=== PATIENT | female | born 1955 ===

== ENCOUNTER 2017-04-14 07:34 | Emergency (ER) | payer MEDICAID ==
[2017-04-14 07:43] VITALS: TEMP 98.2
[2017-04-14] MEDS ORDERED: Iohexol 240 (50 ml) ONE (09:15)
[2017-04-14 09:24] LABS: SQUAMOUS EPITHIAL < 1 /hpf (0-5); URINE BILIRUBIN NEGATIVE (NEGATIVE); URINE BLOOD NEGATIVE (NEGATIVE); URINE CLARITY Clear (Clear); URINE COLOR Yellow (YELLOW); URINE GLUCOSE (UA) 3+ mg/dL (Normal); URINE LEUKOCYTE ESTERASE NEG Leu/uL (Negative); URINE NITRATE NEGATIVE (NEGATIVE); URINE PROTEIN NEGATIVE (NEGATIVE); URINE UROBILINOGEN NORMAL mg/dL (0.2-1.0)
[2017-04-14 09:33] LABS: ALB/GLOB RATIO 1.1 (1.0-2.1); ALT/SGPT 22 U/L (9-52); AST/SGOT 22 U/L (14-36); BLOOD UREA NITROGEN 6 mg/dL (7-17); CALCIUM 9.4 mg/dl (8.6-10.4); GFR AFRICAN-AMERICAN > 60; GFR NON-AFRICAN AMERICAN > 60; LIPASE 45 U/L (23-300)
[2017-04-14 10:04] LABS: BASO % 0.4 % (0.0-2.0); EOS % 0.3 % (0.0-4.0); HEMOGLOBIN 14.2 g/dL (11.0-16.0); LYMPH # 1.2 K/uL (1.0-4.3); LYMPH % 15.8 % (20.0-40.0); MEAN CELL VOLUME 85.8 fL (81.0-99.0); MEAN CORPUSCULAR HEMOGLOBIN 30.6 pg (27.0-31.0); MEAN CORPUSCULAR HGB CONC 35.6 g/dL (33.0-37.0); MEAN PLATELET VOLUME 7.3 fL (7.2-11.7); MONO # 0.5 K/uL (0.0-0.8); MONO % 6.3 % (0.0-10.0); NEUT # 5.8 K/uL (1.8-7.0); NEUT % 77.2 % (50.0-75.0); NRBC % 0.1 % (0.0-2.0); RBC 4.65 Mil/uL (3.80-5.20); RED CELL DISTRIBUTION WIDTH 12.8 % (11.5-14.5)
[2017-04-14 10:06] LABS: WHITE BLOOD COUNT 7.5 K/uL (4.8-10.8)
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
--- NOTE | 2017-04-14 12:52 | CT ---
CT abdomen and pelvis History: Abdominal pain Comparison: None available. Technique: Multiple contiguous axial images were performed through the abdomen and pelvis without the use of intravenous contrast. Subsequently, sagittal and coronal reformatted images were obtained. This CT exam was performed using one or more of the following dose reduction techniques: Automated exposure control, adjustment of the mA and/or kV according to patient size, and/or use of iterative reconstruction technique. Findings: Focal ill-defined area of consolidative opacities within the posterior aspect of the right lower lobe measuring up to 2.7 centimeters which may represent an underlying acute infectious and or inflammatory process. Additional etiologies not entirely excluded. Posttreatment interval followup may be helpful if clinically indicated. Focal areas of more nodular consolidation seen within the anterior aspect of the right middle lobe measuring up 1.7 centimeters with additional focal consolidation seen within lingula. 2 millimeter subpleural calcification along the anterior aspect of the right middle lobe. No pleural or pericardial effusion. Prominent liver. Fatty infiltration of the liver. Status post prior cholecystectomy. Spleen is preserved. Rounded calcified focus adjacent to the pancreatic tail near the splenic hilum which may represent calcified splenule versus calcific vessel versus calcified granuloma versus additional etiology. This is not significantly changed since prior study. Adrenal glands are preserved. Mild fatty atrophy of the pancreas. Upper abdominal bowel is grossly preserved. Right kidney: No calculi or hydronephrosis. Left Kidney: No calculi or hydronephrosis. Underdistended urinary bladder. Diffuse thickening of the colon suggestive for underlying colitis. Diverticulosis most prominent at the level of the sigmoid colon. Most prominent focal thickening of the colon at the level of the ascending and sigmoid colons. Appendix not well identified on this study. Clinical correlation. Calcification and plaque within the aorta. Few shotty para-aortic and mesenteric nodes. Degenerative changes in the visualized osseous structures. Loss of height of the T11 and T12 vertebral bodies suggestive for compression fracture deformities. Impression: Diffuse thickening of the colon suggestive for an underlying colitis. This is most prominent at the level of the ascending and sigmoid colons. Clinical correlation. Focal area of consolidative opacities with some ground-glass attenuation seen at the level of the right lower lobe which may represent an underlying acute infectious and inflammatory process. Clinical correlation. Loss of height of the T11 and T12 vertebral bodies suggestive for compression fracture deformities. These appear new since the prior study. Correlation with MRI may be helpful if clinically indicated. Additional findings as above.
[2017-04-14 13:27] VITALS: BP 148/86; PULSE 88; RESP 16
[2017-04-15 08:05] VITALS: O2SAT 95
== END 2017-04-14 13:26 | disposition home or self-care (01) ==
LOC: C.ER 07:34
DX: H10.9 Unspecified conjunctivitis (principal); R10.84 Generalized abdominal pain; E11.9 Type 2 diabetes mellitus without complications; I10 Essential (primary) hypertension

== ENCOUNTER 2018-05-13 09:16 | Outpatient (CLI) | payer MEDICAID | END 2018-05-13 09:17 | disposition home or self-care (01) | LOC: C.RADIC 11:30 | DX: M54.6 Pain in thoracic spine (principal); M54.2 Cervicalgia ==

== ENCOUNTER 2018-06-07 16:11 | Emergency (ER) | payer MEDICAID ==
[2018-06-07 16:24] VITALS: O2SAT 97
--- NOTE | 2018-06-07 17:19 | RAD ---
Date of service: 06/07/2018 PROCEDURE: Radiographs of the Chest and Right Ribs. Three views HISTORY: fall onto the right ribs COMPARISON: None available. TECHNIQUE: Frontal radiograph of the chest and multiple oblique radiographs of the right ribs were obtained. FINDINGS: RIGHT RIBS: No acute displaced fracture identified. LUNGS: Prominent interstitial markings may be chronic. No focal consolidation. Please note that chest x-ray has limited sensitivity for the detection of pulmonary masses. PLEURA: No significant pleural effusion. No definite pneumothorax. CARDIOVASCULAR: Heart size appears within normal limits. Ectatic aorta with dense atherosclerotic calcifications. OTHER FINDINGS: Right upper quadrant surgical clips. IMPRESSION: Prominent interstitial markings may be chronic. No focal consolidation, significant pleural effusion, or definite pneumothorax identified. No appreciable right rib fractures.
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
[2018-06-07 17:41] VITALS: BP 149/83; PULSE 89; RESP 17; TEMP 98.4
== END 2018-06-07 17:40 | disposition home or self-care (01) ==
LOC: C.ER 16:11
DX: S20.211A Contusion of right front wall of thorax, initial encounter (principal); W01.0XXA Fall on same level from slipping, tripping and stumbling without subsequent striking against object, initial encounter